=== PATIENT | male | born 1965 | race Caucasian/White ===

== ENCOUNTER → 2017-05-17 | Outpatient (CLI) | payer BC | END | disposition home or self-care (01) | LOC: GMAB 10:57 | PROVIDERS: ATTEND Family Medicine | DX: Z00.01 Encounter for general adult medical examination with abnormal findings (principal) ==

== ENCOUNTER → 2017-07-10 | Outpatient (CLI) | payer BC | LOC: GMATM 12:36 | PROVIDERS: ATTEND Nurse Practitioner Family | DX: M25.50 Pain in unspecified joint (principal) ==

== ENCOUNTER → 2017-07-16 | Outpatient (CLI) | payer BC | LOC: GMAB 14:44 | PROVIDERS: ATTEND Family Medicine | DX: M79.1 Myalgia (principal) ==

== ENCOUNTER → 2017-07-17 | Outpatient (CLI) | payer BC, OTHER ==
--- NOTE | 2017-07-17 14:14 | MRI ---
EXAM DESCRIPTION: Brain w/o Contrast: MRI. CLINICAL HISTORY: HEADACHE COMPARISON: None. TECHNIQUE: Multiplanar, high-field MRI unit, multiple diffusion sequences, multiple conventional sequences without contrast. FINDINGS: Normal FLAIR and T2-weighted signal in the periventricular white matter and saul-white matter junctions of the cerebral hemispheres. . Normal signal in the bilateral basal ganglia. No hemorrhage, no cerebral edema, no mass-effect. Normal signal in the brainstem and cerebellar hemispheres. No hemorrhage, no cerebral edema, no mass-effect. Concordance of the diffusion and non-diffusion sequences with no diffusion restriction. Cortical sulci, ventricles, and other CSF spaces, and the subdural spaces are normally configured. No effacement or displacement. No midline shift. No extra-axial hemorrhage. Normal flow signal void in the major vessels of the [place], and the venous sinuses. IACs are symmetric bilaterally. Abnormal signal in the left mastoid air cells with mucosal edema and and fluid and decreased number of air cells. No mass effect in the bilateral cerebellopontine angles. Pituitary gland occupies most of the sella. Base of the cerebellar tonsils is at the level of the foramen magnum. Mucoperiosteal thickening in several regions of the paranasal sinuses. The bony calvarium is intact. IMPRESSION: 1. No hemorrhage intra-axial or extra-axial. No mass effect or midline shift. Normal saul and white matter signal in the intra-axial brain and cerebellar hemispheres. 2. Normal noncontrast MRI diffusion study with no evidence of acute or subacute infarction. 3. Fluid and edema signal in the left mastoid air cells with loss of normal aerated cells. This could represent acute and chronic mastoiditis. Chronic paranasal sinusitis. Electronically signed by: Misha Hernandez MD 07/17/2017 2:13 PM CDT
== END ==
LOC: MRI 12:30
PROVIDERS: ATTEND Family Medicine
DX: R51 Headache (principal)

== ENCOUNTER 2017-07-18 08:14 | Day surgery (SDC) | payer BC, OTHER ==
[2017-07-18] MEDS: LIDOCAINE 1% 50 ML VIAL INJ ONE (10:08)
[2017-07-18] MEDS: SODIUM BICARBONATE VIAL 50 MEQ/50 ML VIAL ONE (10:08)
--- NOTE | 2017-07-18 11:28 | OP ---
DATE OF PROCEDURE: 07/18/17 PREOPERATIVE DIAGNOSIS: 1. Left sided headache. 2. Elevated sedrate. 3. Rule out temporal arteritis. POSTOPERATIVE DIAGNOSIS: 1. Left sided headache. 2. Elevated sedrate. 3. Rule out temporal arteritis. 4. Pending pathology. PROCEDURE: 1. Biopsy, left temporal artery. SURGEON: Alcides Lilly MD. PRINTING PLATE SETTER: None. ANESTHESIA: Local infiltration of 1% lidocaine. INDICATION: The patient is 51-year-old male who has had roughly a two week history of headaches, tenderness over his left temporal artery. He has developed redness of his left eye. He was found to have an elevated sedrate. MRI of the brain was non-diagnostic. He has been treated with steroids without significant improvement, so he has been started on high-dose prednisone. After discussion with Dr. Lopez, he was brought to the Surgical Suite today for temporal artery biopsy to rule out temporal arteritis. FINDINGS: The vessel revealed pulsatile blood prior to ligature. PROCEDURE: After the vessel was identified and marked using ultrasound, the patient was brought to the Surgical Suite and placed in supine position with his head turned to the right. The left temporal area was prepped with ChloraPrep and draped sterilely. An incision was marked first with a marking pen, then with infiltration of anesthesia. The skin was incised with a knife and dissection was carried down through the skin and into the subcutaneous tissue using electrocautery and blunt dissection. Eventually, the vessel was identified using tactile identification. It was dissected free proximally and distally. It was then clamped distally after a ligature of 4-0 Vicryl was wrapped around the proximal area. It was then incised, but not divided distally. Pulsatile blood was identified, so the proximal end was ligated. The ligature was tightened and tied. The specimen was then divided and sent for pathological evaluation. The wound was irrigated with lidocaine. Hemostasis was noted to be adequate. Subcutaneous tissues were approximated with 3-0 Vicryl simple sutures and then the skin edges were approximated with 4- 0 Vicryl subcuticular sutures, benzoin and Steri-Strips. Sterile dressings were applied. The patient was awakened and taken to the Recovery Room in good and stable condition. Estimated blood loss was less than 25 mL. All sponge, needle and instrument counts were correct. #[id number] [facility]
[2017-07-18 11:49] VITALS: BP 93/60; TEMP 96.5; O2SAT 99
== END 2017-07-18 11:40 | disposition home or self-care (01) ==
LOC: AMB 08:14
PROVIDERS: ATTEND Surgery
DX: R51 Headache (principal); I10 Essential (primary) hypertension; K21.9 Gastro-esophageal reflux disease without esophagitis; G25.0 Essential tremor; R70.0 Elevated erythrocyte sedimentation rate; R97.20 Elevated prostate specific antigen [PSA]; Z88.0 Allergy status to penicillin; Z79.899 Other long term (current) drug therapy

== ENCOUNTER → 2017-08-21 | Outpatient (CLI) | payer BC | LOC: GMAB 10:54 | PROVIDERS: ATTEND Family Medicine | DX: R94.5 Abnormal results of liver function studies (principal); M79.1 Myalgia ==

== ENCOUNTER → 2017-09-05 | Outpatient (CLI) | payer BC ==
--- NOTE | 2017-09-06 13:33 | CT ---
EXAM DESCRIPTION: Abdomen/Pelvis w/wo Contrast: Computed Tomography. CLINICAL HISTORY: LEFT LOWER QUADRANT PAIN COMPARISON: CT abdomen with contrast 06/15/2007 TECHNIQUE: Spiral-axial scans at 5.0 mm intervals through the abdomen and pelvis before and after standard dose nonionic IV contrast. No oral contrast. Coronal and sagittal 2.0 mm reconstructions. 5 mm Delayed helical-axial scans, liver through the pubic symphysis. No adverse reactions. Total Exam DLP 2751.07 mGy - cm. This exam was performed according to our departmental CT dose-optimization program which includes automated exposure control, adjustment of the mA and/or kV according to patient size and/or use of iterative reconstruction technique; to reduce radiation dose to as low as reasonably achievable (ALARA). FINDINGS: Lung bases and pleura: Negative. Liver, Stomach, Spleen, Adrenal Glands: Heterogeneous fatty density of the liver but not enlarged. Normal enhancement and normal intrahepatic ducts. Smooth capsule. Vascularity unremarkable. Other organs unremarkable. Pancreas, Gallbladder, Ducts: Gallbladder visualized. Negative. Kidneys and Ureters: Contrast not seen in the right ureter on the delayed images but normal caliber with no radiodense stones. Otherwise unremarkable. Mesentery: Negative. No free fluid. No fatty stranding or fascial thickening in the left lower quadrant. Aorta: Minimal atherosclerotic calcification. Normal caliber. No periaortic masses. Small Bowel: Normal caliber. Terminal Ileum/Cecum: Normal caliber. Appendix not seen. Normal density of the surrounding fat. Colon: Marked redundancy of the sigmoid. Normal caliber of the colon. No complications. Pelvic Organs: Prostate gland impressing on the base of the urinary bladder and seminal vesicles. Minimal bladder wall thickening. No fluid in the anterior peritoneal reflection. Spine and Bony Pelvis: Spurs on anterior disc spaces intermittently in the thoracic and lumbar spine. Bilateral L5-S1 foraminal narrowing. Bilateral hypertrophic acetabular lateral margins with joint space narrowing. Sclerosis of the iliac subchondral bone abutting the right SI joint. Abdominal Wall/Back Soft Tissues: Diastases of fat at the umbilicus but not containing bowel. IMPRESSION: 1. No soft tissue mass, free air, free fluid or inflammatory changes in the abdomen or pelvis, particularly left lower quadrant. Normal caliber of the colon with no significant diverticular formation. 2. Steatosis of the liver but no other hepatic abnormalities. No ascites 3. Minimal enlargement of the prostate gland. Minimal spondylosis of the lumbar and thoracic spine. Umbilical fatty diastases but no hernia of bowel. Electronically signed by: Misha Hernandez MD 09/06/2017 1:32 PM CDT
== END ==
LOC: LAB.O 11:36
PROVIDERS: ATTEND Nurse Practitioner Family
DX: R10.32 Left lower quadrant pain (principal); K76.0 Fatty (change of) liver, not elsewhere classified

== ENCOUNTER → 2018-08-27 | Outpatient (CLI) | payer BC | LOC: LAB.O 08:33 | PROVIDERS: ATTEND Nurse Practitioner Family | DX: I10 Essential (primary) hypertension (principal) ==